=== PATIENT | female | born 1995 | race African-American/Black ===

== ENCOUNTER 2016-11-17 17:45 | Emergency (ER) | payer BC ==
[~2016-11-17] VITALS: Ht 167.6 cm; Wt 65.0 kg
[2016-11-17 17:47] VITALS: BP 138/67; PULSE 76; RESP 20; TEMP 98.6; O2SAT 98
--- NOTE | 2016-11-17 20:17 | PD ---
HPI Chief Complaint: Abdominal Pain Time Seen by Provider: 20:16 Travel History International Travel<30 days: No Contact w/Intl Traveler<30days: No Traveled to known affect area: No History of Present Illness HPI 21-year-old female came to the emergency room with history of vaginal bleeding and . Patient's last menstrual cycle was 10/22/2015. Patient says she started having vaginal bleeding on 11/11/2015 when she was late by a week and a half. Since then the vaginal bleeding has not stopped. It has slowed down. She had passed initially large clots which were larger than her usual period. Patient did a home test which was positive. She went to [facility] department today aware and on a urine was done and was faintly positive. She was referred to the emergency room from there. Patient is A0. She is otherwise a healthy person. Denies any lightheadedness or syncopal episode. Vital signs were stable in triage. [facility] Past Medical History Narrative Medical List of her past medical, surgical, social and family history was reviewed from the nursing note. ?: Social History Tobacco Use: Yes Allergies-Medications (Allergen,Severity, Reaction): Coded Allergies: No Known Allergies (Unverified , 11/17/16) Comments List of her allergies reviewed from the nursing note. Reported Meds & Prescriptions Reported Meds & Active Scripts Active No Active Prescriptions or Reported Medications Narrative Medication List of her medications reviewed from the nursing note. Review of Systems Except as stated in HPI: all other systems reviewed are Neg Physical Exam Narrative GENERAL: Awake, alert, no obvious distress SKIN: Focused skin assessment warm/dry. HEAD: Atraumatic. Normocephalic. EYES: Pupils equal and round. No scleral icterus. No injection or drainage. ENT: No nasal bleeding or discharge. Mucous membranes pink and moist. NECK: Trachea midline. No JVD. CARDIOVASCULAR: Regular rate and rhythm. No murmur appreciated. RESPIRATORY: No accessory muscle use. Clear to auscultation. Breath sounds equal bilaterally. GASTROINTESTINAL: Abdomen soft, non-tender, nondistended. Hepatic and splenic margins not palpable. MUSCULOSKELETAL: No obvious deformities. No clubbing. No cyanosis. No edema. NEUROLOGICAL: Awake and alert. No obvious cranial nerve deficits. Motor grossly within normal limits. Normal speech. PSYCHIATRIC: Appropriate mood and affect; insight and judgment normal. Data Data Last Documented VS Vital Signs Date Time Temp Pulse Resp B/P Pulse Ox O2 Delivery O2 Flow Rate FiO2 11/17/16 17:47 98.6 76 20 138/67 98 Room Air Orders Beta Hcg (Quant/Titer) (11/17/16 20:18) Complete Blood Count With Diff (11/17/16 20:18) Basic Metabolic Panel (Bmp) (11/17/16 20:18) Type And Screen (11/17/16 20:18) Urinalysis - C+S If Indicated (11/17/16 20:18) Ed Urine Pregnancytest Poc (11/17/16 20:18) Sodium Chlor 0.9% 1000 Ml Inj (Ns 1000 M (11/17/16 21:15) Sodium Chlor 0.9% 1000 Ml Inj (Ns 1000 M (11/17/16 21:15) Us Pelvis (Ques Pr/Ect)W Trans (11/17/16 ) Labs Laboratory Tests Test 11/17/16 11/17/16 20:22 20:35 Urine Color YELLOW Urine Turbidity CLEAR Urine pH 5.5 Urine Specific [place] 1.023 Urine Protein NEG mg/dL Urine Glucose (UA) NEG mg/dL Urine Ketones 40 mg/dL Urine Occult Blood MOD Urine Nitrite NEG Urine Bilirubin NEG Urine Urobilinogen LESS THAN 2.0 MG/DL Urine Leukocyte Esterase NEG Urine RBC LESS THAN 1 /hpf Urine WBC LESS THAN 1 /hpf Urine Squamous Epithelial 1 /hpf Cells Urine Mucus FEW /lpf Microscopic Urinalysis Comment CULT NOT INDICATED White Blood Count 7.3 TH/MM3 Red Blood Count 4.38 MIL/MM3 Hemoglobin 11.5 GM/DL Hematocrit 34.9 % Mean Corpuscular Volume 79.6 FL Mean Corpuscular Hemoglobin 26.2 PG Mean Corpuscular Hemoglobin 32.9 % Concent Red Cell Distribution Width 17.7 % Platelet Count 261 TH/MM3 Mean Platelet Volume 9.0 FL Neutrophils (%) (Auto) 41.6 % Lymphocytes (%) (Auto) 51.4 % Monocytes (%) (Auto) 5.4 % Eosinophils (%) (Auto) 1.0 % Basophils (%) (Auto) 0.6 % Neutrophils # (Auto) 3.0 TH/MM3 Lymphocytes # (Auto) 3.8 TH/MM3 Monocytes # (Auto) 0.4 TH/MM3 Eosinophils # (Auto) 0.1 TH/MM3 Basophils # (Auto) 0.0 TH/MM3 CBC Comment DIFF FINAL Differential Comment Sodium Level 138 MEQ/L Potassium Level 4.1 MEQ/L Chloride Level 105 MEQ/L Carbon Dioxide Level 24.4 MEQ/L Anion Gap 9 MEQ/L Blood Urea Nitrogen 12 MG/DL Creatinine 0.90 MG/DL Estimat Glomerular Filtration 96 ML/MIN Rate Random Glucose 81 MG/DL Calcium Level 9.1 MG/DL Human Chorionic Gonadotropin, 135 MIU/ML Quant Blood Type B POSITIVE Antibody Screen NEGATIVE Blood Bank Comment [facility] Medical Decision Making Medical Screen Exam Complete: Yes Emergency Medical Condition: Yes Medical Record Reviewed: Yes Differential Diagnosis Threatened , ectopic , early with vaginal bleeding Narrative Course 9:12 PM based on the bedside ultrasound that I had done I have ordered an official pelvic ultrasound to rule out ectopic. My concern is ectopic given the cystic structure I have noticed increased cervix. Awaiting for the beta-hCG and the ultrasound to be done and resulted. UA was suggestive of dehydration. I've ordered 2 L of IV fluid bolus as well. 9:32 PM beta-hCG quantitative is very low. And patient is Rh+. Awaiting for the ultrasound. 12:12 AM ultrasound report came back and shows he is an early gestation or incomplete . Patient will be call back in 48 hours to get repeat hCG. Procedures Procedure Narrative Emergency Department Pelvic ultrasound was performed with patient consent. The curvilinear probe was used in the transverse and sagittal views within the suprapubic region revealing negative intrauterine . However a cystic structures noted in the cervix raising the question of ectopic . No pole EKG Prior to Arrival: No Diagnosis Primary Impression: Qualified Code: Z3A.01 - Less than 8 weeks gestation of Additional Impression: Threatened Referrals: Sharron Harrell MD 2 days Additional Instructions: Please call the office of the [facility] specialist's name and number been given to you. Return to the ER in 48 hours to get a repeat blood test done to check the hormone level. No vaginal intercourse, douching or tampons or anything and vagina until you've been seen by [facility] specialist. Med/Other Pt SpecificInfo: No Meds Exist/No RX given Scripts No Active Prescriptions or Reported Meds Disposition: DISCHARGE HOME Condition: Stable Ghassan White MD November 17, 2016 20:17
[2016-11-17 20:44] LABS: BASOPHIL % 0.6 % (0.0-2.0); EOSINOPHIL # 0.1 TH/MM3 (0-0.4); HEMATOCRIT 34.9 % (35.0-46.0); HEMO FLAGS DIFF FINAL; LYMPH % 51.4 % (9.0-44.0); LYMPHOCYTE # 3.8 TH/MM3 (1.0-4.8); MEAN CELL VOLUME 79.6 FL (80.0-100.0); MEAN CORPUSCULAR HEMOGLOBIN 26.2 PG (27.0-34.0); MEAN CORPUSCULAR HGB CONC 32.9 % (32.0-36.0); MONO % 5.4 % (0.0-8.0); NEUT % 41.6 % (16.0-70.0); PLATELET COUNT 261 TH/MM3 (150-450); RED BLOOD COUNT 4.38 MIL/MM3 (4.00-5.30); RED CELL DISTRIBUTION WIDTH 17.7 % (11.6-17.2); WHITE BLOOD COUNT 7.3 TH/MM3 (4.0-11.0)
[2016-11-17 20:45] LABS: BLOOD, URINE MOD (NEG); COMMENT (UR) CULT NOT INDICATED; CULTURE IF INDICATED CULT NOT INDICATED; GLUCOSE,URINE NEG (NEG); KETONE, URINE 40 mg/dL (NEG); MUCUS URINE FEW /lpf (OCC); NITRITE,URINE NEG (NEG); PH, URINE 5.5 (5.0-8.5); SQUAMOUS EPITHELIAL CELL URINE 1 /hpf (0-5); URINE COLOR YELLOW (YELLW/STRAW)
[2016-11-17] MEDS ORDERED: SODIUM CHLOR 0.9% 1000 ML INJ 1,000 ML IV ONE ×2 (21:15)
[2016-11-17 21:26] LABS: BICARBONATE 24.4 MEQ/L (21.0-32.0); POTASSIUM 4.1 MEQ/L (3.5-5.1)
--- NOTE | 2016-11-17 23:29 | RADRPT ---
EXAM DATE/TIME: 11/17/2016 22:26 [facility] COMPARISON: No previous studies available for comparison. INDICATIONS : Bleeding with . LAB(S): Beta-hC MEDICAL HISTORY : . Abnormal bleeding. SURGICAL HISTORY : None. ENCOUNTER: Initial ACUITY: 1 day PAIN SCORE: 0/10 LOCATION: Bilateral pelvis MEASUREMENTS: UTERUS: 7.7 x 5.3 x 3.1 cm ENDOMETRIAL STRIPE: 4 mm RIGHT OVARY: 3.5 x 3.0 x 2.1 cm LEFT OVARY: 3.7 x 1.9 x 1.8 cm FREE FLUID: Yes Trace amount in posterior cul de sac. CROWN RUMP LENGTH: Non visualized. = WKS DAYS FHR: Non visualized. BPM FINDINGS: UTERUS: The myometrium has homogeneous echotexture without mass.4 x 2 mm collection in the endometrial lining within the fundus conceivably could be an early gestational sac. There is a tiny amount of fluid in the lower endometrial canal. Small nabothian cyst RIGHT OVARY: Ovary contains no mass or significant cystic lesion. LEFT OVARY: Ovary contains no mass or significant cystic lesion. MISCELLANEOUS: No free fluid. CONCLUSION: Small amount of fluid within the endometrial canal with a 4 x 2 mm collection could be an early gesta tional sac. Both ovaries are unremarkable. No free fluid. Frederick Chappell MD on November 17, 2016 at 23:24 Board Certified Radiologist. This report was verified electronically.
== END 2016-11-18 00:53 | disposition home or self-care (01) ==
LOC: NEPC 17:45
DX: O20.0 Threatened abortion (principal); Z3A.01 Less than 8 weeks gestation of pregnancy
CPT/HCPCS: 76700; 76817; 80048; 81001; 84702; 84703; 85025; 86850; 86900; 86901; 99284; J7030

== ENCOUNTER 2016-11-20 12:55 | Emergency (ER) | payer BC ==
[~2016-11-20] VITALS: Ht 167.6 cm; Wt 66.0 kg
[2016-11-20 12:56] VITALS: BP 134/74; PULSE 92; RESP 14; TEMP 98.1; O2SAT 99
--- NOTE | 2016-11-20 13:37 | PD ---
HPI Chief Complaint: Related Problem Time Seen by Provider: 13:21 Travel History International Travel<30 days: No Contact w/Intl Traveler<30days: No Traveled to known affect area: No History of Present Illness HPI 21-year-old female returning for recheck beta hCG titer. Patient was seen in the emergency room 3 days ago pelvic pain and vaginal spotting. Beta hCG titer done at that visit was 135. Pelvic ultrasound shows small amount of fluid within the endometrial canal with 4 x 2 mm collection could be early gestational sac. Patient was advised to follow up with local physician or emergency room for repeat beta hCG titer. Patient states that she has no abdominal pain, pelvic pain or vaginal bleeding since last visit. Patient denies any fever chills. PFSH Past Medical History Diminished Hearing: No ?: Social History Alcohol Use: No Tobacco Use: Yes Substance Use: Yes (MARIJUANA ) Allergies-Medications (Allergen,Severity, Reaction): Coded Allergies: No Known Allergies (Unverified , 11/20/16) Reported Meds & Prescriptions Reported Meds & Active Scripts Active No Active Prescriptions or Reported Medications Review of Systems General / Constitutional: No: Fever Eyes: No: Visual changes HENT: No: Headaches Cardiovascular: No: Chest Pain or Discomfort Respiratory: No: Shortness of Breath Gastrointestinal: No: Abdominal Pain Genitourinary: No: Dysuria Musculoskeletal: No: Pain Skin: No Rash Neurologic: No: Weakness Psychiatric: No: Depression Endocrine: No: Polydipsia Hematologic/Lymphatic: No: Easy Bruising Physical Exam Narrative GENERAL: Well-nourished, well-developed patient. SKIN: Focused skin assessment warm/dry. HEAD: Normocephalic. EYES: No scleral icterus. No injection or drainage. NECK: Supple, trachea midline. No JVD or lymphadenopathy. CARDIOVASCULAR: Regular rate and rhythm without murmurs, gallops, or rubs. RESPIRATORY: Breath sounds equal bilaterally. No accessory muscle use. GASTROINTESTINAL: Abdomen soft, non-tender, nondistended. MUSCULOSKELETAL: No cyanosis, or edema. BACK: Nontender without obvious deformity. No CVA tenderness. Data Data Last Documented VS Vital Signs Date Time Temp Pulse Resp B/P Pulse Ox O2 Delivery O2 Flow Rate FiO2 11/20/16 13:19 16 11/20/16 12:56 98.1 92 134/74 99 Orders Beta Hcg (Quant/Titer) (11/20/16 13:28) Labs Laboratory Tests Test 11/20/16 13:30 Human Chorionic Gonadotropin, 53 MIU/ML Quant MDM Medical Decision Making Medical Screen Exam Complete: Yes Emergency Medical Condition: Yes Interpretation(s) 1430 p.m. Beta hCG 53 Differential Diagnosis Differential diagnosis including threatened AB, incomplete AB, completed AB. Narrative Course 21-year-old female returning for repeated beta CG titer. Beta hCG titer 3 days ago was 165. Diagnosis Primary Impression: Complete Patient Instructions: General Instructions Additional Instructions: Follow-up with personal physician and electronics lead. Return as needed. Med/Other Pt SpecificInfo: No Meds Exist/No RX given Scripts No Active Prescriptions or Reported Meds Disposition: DISCHARGE HOME Condition: Stable Marco A Fox MD November 20, 2016 13:37
[2016-11-20 14:24] LABS: BETA HCG QUANT 53 MIU/ML (0-5)
== END 2016-11-20 14:48 | disposition home or self-care (01) ==
LOC: NEPD 12:55
DX: O03.9 Complete or unspecified spontaneous abortion without complication (principal)
CPT/HCPCS: 84702; 99283